=== PATIENT | male | born 2005 | race African-American/Black ===

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

== ENCOUNTER 2025-06-07 09:57 | Emergency (ER) | payer MEDICAID, SELFPAY ==
[2025-06-07 09:57] VITALS: BP 174/106; PULSE 52; RESP 14; TEMP 36.2; O2SAT 100; BMI 46.2
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
--- NOTE | 2025-06-07 10:54 | CM.ED ---
Social work Reason for referral: no PCP or insurance Referral source: case find This SW identified patient lacked PCP and insurance. SW entered patient's room, introducing self and role at [facility]. Patient confirmed lacking PCP and insurance. Patient accepted resources of [facility] Provider Directory, [facility], and information on how to apply for Medicaid. Patient stated not knowing what resources patient may be in need of as patient lives in [place], but is in [place] often due to working at [employer] in [place]. Patient stated no further needs at this time. Trudi Wolff, TECHNICIAN [employer], DUMP MOTOR OPERATOR
[2025-06-07 11:04] VITALS: BP 134/72; PULSE 74; RESP 15; TEMP 36.6; O2SAT 100
== END 2025-06-07 11:06 | disposition home or self-care (01) ==
PROVIDERS: Emergency Provider Emergency Medicine; Visit Provider Emergency Medicine
DX: S39.012A Strain of muscle, fascia and tendon of lower back, initial encounter (principal); R06.00 Dyspnea, unspecified; M54.2 Cervicalgia; S29.012A Strain of muscle and tendon of back wall of thorax, initial encounter; V43.52XA Car driver injured in collision with other type car in traffic accident, initial encounter
CPT/HCPCS: 99282